=== PATIENT | female | born 1945 | race Caucasian/White ===

== ENCOUNTER → 2022-05-27 | Outpatient (CLI) | payer OTHER ==
[2022-05-29 14:51] LABS: Creatinine Urine 69.5 mg/dL (27.00-270.00); Microalbumin, Urine Quant. 5.7 mg/L (0.000-20.000); Protein, Urine Quantitative 10.1 mg/dL (0.0-11.9)
== END | disposition home or self-care (01) ==
LOC: LAB 07:25 → LAB SHORT 07:25 → LAB FUT 05-25 10:25
PROVIDERS: Internal Medicine Nephrology
DX: E55.9 Vitamin D deficiency, unspecified (principal); N25.81 Secondary hyperparathyroidism of renal origin; N18.4 Chronic kidney disease, stage 4 (severe); D63.1 Anemia in chronic kidney disease; D50.9 Iron deficiency anemia, unspecified; D51.8 Other vitamin B12 deficiency anemias; E78.00 Pure hypercholesterolemia, unspecified; R76.9 Abnormal immunological finding in serum, unspecified; R94.5 Abnormal results of liver function studies; R94.6 Abnormal results of thyroid function studies
CPT/HCPCS: 81050; 82043; 82570; 84156

== ENCOUNTER 2023-04-21 10:22 | Emergency (ER) | payer OTHER ==
[~2023-04-21] VITALS: Ht 157.5 cm; Wt 68.0 kg
[~2023-04-21 10:22] MED LIST: ACET500 PO; ALBU90OI INH; ANTIFUNGAL30 GM TOP; ARTIFICIAL TEA1 EAC1 BOTHEYES; BENZ100A PO; BUME2 PO; Bupropion HCl75 MG PO; CALC.25 PO; CAMPHOR-MENTHOL TOP; CARV6.25 PO; CENTRUM SILVER1 EAC2 PO; FLONASE ALLERG9.9 M2; FURO20 PO; Fibercon625 MG PO; Humibid-LA 600600 MG PO; IBUP200 PO; LATA.005SO BOTHEYES; LEVSOD100 PO; OMEP20ER PO; PANT40 PO; POTA10T PO; PRESERVISION A1 EAC2 PO; Prinivil10 MG PO; SERT100 PO; STIOLTO RESPIMAT4 G1 INH; TAMS.4ER PO; THERA-D2000 UNIT PO
[2023-04-21 10:26] VITALS: BP 186/62
[2023-04-21 11:51] LABS: BASOPHILS ABSOLUTE AUTO 0.06 K/mm3 (0.00-0.23); BASOPHILS PERCENT AUTO 1 % (0-2); EOSINOPHILS ABSOLUTE AUTO 0.16 K/mm3 (0.00-0.68); EOSINOPHILS PERCENT AUTO 2 % (0-6); Hematocrit 36.2 % (37.0-53.0); Hemoglobin 12.1 g/dL (13.5-17.5); IMMATURE GRAN ABSOLUTE AUTO 0.05 K/mm3 (0.00-0.10); IMMATURE GRAN PERCENT AUTO 1 % (0-1); LYMPHOCYTES ABSOLUTE AUTO 1.37 K/mm3 (0.84-5.20); LYMPHOCYTES PERCENT AUTO 20 % (21-46); MONOCYTES ABSOLUTE AUTO 0.49 K/mm3 (0.16-1.47); MONOCYTES PERCENT AUTO 7 % (4-13); Mean Corpuscular HGB Conc 33.4 g/dL (31.5-36.5); Mean Corpuscular Volume 90 fL (80-100); Mean Platelet Volume 10.5 fL (9.1-12.4); NEUTROPHILS ABSOLUTE AUTO 4.78 K/mm3 (1.96-9.15); NEUTROPHILS PERCENT AUTO 69 % (41-73); NRBC ABSOLUTE 0.03 K/mm3 (0.00-0.02); NRBC Auto 0.4 /100 WBC (0.0-0.2); Platelet Count 232 K/mm3 (150-400); RDW Coefficient Variation 14.9 % (11.7-14.2); Red Blood Cell Count 4.04 M/mm3 (4.30-5.90); White Blood Cell Count 6.91 K/mm3 (4.00-11.30)
[2023-04-21 12:06] LABS: Bun/Creatinine Ratio 14.5 (12.0-20.0); Calcium, Blood 9.3 mg/dL (8.5-10.1); Potassium, Blood 3.9 mmol/L (3.5-5.5)
[2023-04-21 13:45] LABS: Source, Urine Clean Catch
[2023-04-21 13:53] LABS: Appearance, Urine Cloudy (Clear); Bilirubin, Urine Neg (Neg); Blood, Urine 5+ (Neg); Color, Urine Yellow (P-Yellow); Glucose Qualitative, Urine Neg (Neg); Ketones, Urine Neg (Neg); Leukocyte Esterase, Urine Neg (Neg); Nitrite, Urine Neg (Neg); Protein, Urine 2+ (Neg); Urobilinogen, Urine NORM (Normal)
[2023-04-21 14:09] LABS: Bacteria Few /hpf; Red Blood Cells, Urine TNTC /hpf (0-2); Renal Epithelial Few /hpf (0-Rare); Squamous Epithelial Cells Few /hpf (Few); White Blood Cells, Urine 0-2 /hpf (0-5)
== END 2023-04-21 13:46 | disposition home or self-care (01) ==
LOC: ER 10:22
PROVIDERS: Emergency Medicine
DX: R39.198 Other difficulties with micturition (principal); M54.50 Low back pain, unspecified; R35.0 Frequency of micturition; Z98.1 Arthrodesis status; Z87.891 Personal history of nicotine dependence; R39.15 Urgency of urination; R35.1 Nocturia; I13.0 Hypertensive heart and chronic kidney disease with heart failure and stage 1 through stage 4 chronic kidney disease, or unspecified chronic kidney disease; I50.20 Unspecified systolic (congestive) heart failure; E11.22 Type 2 diabetes mellitus with diabetic chronic kidney disease; N18.30 Chronic kidney disease, stage 3 unspecified; E78.5 Hyperlipidemia, unspecified; J44.9 Chronic obstructive pulmonary disease, unspecified; E03.9 Hypothyroidism, unspecified; F43.10 Post-traumatic stress disorder, unspecified; K21.9 Gastro-esophageal reflux disease without esophagitis; N40.1 Benign prostatic hyperplasia with lower urinary tract symptoms; Z79.899 Other long term (current) drug therapy; Z79.51 Long term (current) use of inhaled steroids
CPT/HCPCS: 51701; 51798; 72100; 76770; 80048; 81001; 85025; 99284-25

== ENCOUNTER → 2024-10-24 | Outpatient (CLI) | payer OTHER ==
[2024-10-27 12:49] LABS: C DIFFICILE DNA POSITIVE (Negative)
[2024-10-29 13:57] LABS: GIARDIA ANTIGEN BY EIA Negative (Negative)
[2024-10-29 13:58] LABS: CRYPTOSPORIDIUM ANTIGEN BY EIA Negative (Negative)
[2024-10-29 19:09] LABS: LACTOFERRIN,FECAL BY ELISA Negative (Negative)
[2024-10-30 20:53] LABS: PANCREATIC ELASTASE,FECAL >800 ug/g (>=100)
[2024-10-30 22:01] LABS: CALPROTECTIN,FECAL 10 ug/g (<=49)
[2024-10-31] LABS: OVA AND PARASITE,FECAL INTERP Negative (Negative)
== END ==
LOC: LAB SHORT 22:00 → LAB 22:00 → LAB FUT 10-23 09:45 → EDSTATUS 10-23 09:45
PROVIDERS: Nurse Practitioner Family
DX: R19.7 Diarrhea, unspecified (principal); R10.9 Unspecified abdominal pain; R14.0 Abdominal distension (gaseous)
CPT/HCPCS: 82653; 83630; 83993; 87015; 87045; 87046; 87177; 87205; 87209; 87324; 87328; 87329; 87338; 87493; 87899

== ENCOUNTER → 2024-10-25 | Outpatient (CLI) | payer OTHER ==
[2024-10-31] LABS: OVA AND PARASITE,FECAL INTERP Negative (Negative)
== END | disposition home or self-care (01) ==
LOC: LAB SHORT 07:00 → LAB 07:00
PROVIDERS: Nurse Practitioner Family
DX: R19.7 Diarrhea, unspecified (principal); R10.9 Unspecified abdominal pain; R14.0 Abdominal distension (gaseous)
CPT/HCPCS: 87177; 87209

== ENCOUNTER → 2024-10-26 | Outpatient (CLI) | payer OTHER ==
[2024-10-31] LABS: OVA AND PARASITE,FECAL INTERP Negative (Negative)
== END | disposition home or self-care (01) ==
LOC: LAB SHORT 10:38 → LAB 10:38
PROVIDERS: Nurse Practitioner Family
DX: R19.7 Diarrhea, unspecified (principal); R10.9 Unspecified abdominal pain; R14.0 Abdominal distension (gaseous)
CPT/HCPCS: 87177; 87209